=== PATIENT | female | born 2005 | race Caucasian/White ===

== ENCOUNTER 2025-04-25 10:43 | Emergency (ER) | payer OTHER, SELFPAY ==
[2025-04-25 10:52] VITALS: BP 122/85; PULSE 76; RESP 16; TEMP 36.7; O2SAT 99; BMI 34.9
--- NOTE | 2025-04-25 10:58 | ED.ABDPAIN ---
HPI - Abdominal Pain General Time Seen by Provider: 10:59 Date Seen: 04/25/25 Chief Complaint: Abdominal Pain Stated Complaint: abdominal pain Time Seen by Provider: 04/25/25 10:55 Source: patient and RN notes reviewed Mode of arrival: ambulatory Limitations: no limitations History of Present Illness HPI narrative: This 19-year-old female is coming into the ER with abdominal pain starting today. She awoke with lower generalized abdominal pain this morning. She has been using an yrmh-cax-indpjmd control called Opill. She is occasionally missed doses due to work but generally does not. She has not had a period since starting this 10 months ago. She is sexually active with her partner here. She had normal bowel movement yesterday. She has not eaten anything today but no nausea vomiting, just diminished appetite she thinks due to the pain. No urinary symptoms. She did just urinate prior to coming in, does not think should be able to provide us a urine specimen. She has noted no fevers or chills. MD elicited complaint: abdominal pain Related Data Previous Rx's ?Medication ?Instructions ?Recorded prednisone 20 mg tablet See Rx Instructions PO .ud #11 tabs 12/16/24 cephalexin 500 mg tablet 500 mg PO TID #15 tabs 04/25/25 Allergies Allergy/AdvReac Type Severity Reaction Status Date / Time No Known Drug Allergies Allergy Verified 04/25/25 10:52 Review of Systems Status of ROS Reports: 6 or more systems reviewed and unremarkable except as noted in History and below PFSH PFS Social History Do you use any of these nicotine containing products: Vaping Products How often do you have a drink containing alcohol: never AUDIT-C Alcohol total score: 0 Non-prescribed substance use: denies use service: No Exam Const: Vital Signs, click to edit/add: Vital Signs - 24 hr 04/25/25 10:52 04/25/25 11:37 04/25/25 11:45 Temperature 98.1 F Pulse Rate 59 L 56 L Pulse Rate [Pulse Oximeter] 76 Respiratory Rate 16 16 Blood Pressure Blood Pressure [Ri ght Upper Arm] 122/85 Pulse Oximetry 99 98 98 Oxygen Delivery Me thod Room Air 04/25/25 12:00 04/25/25 12:38 04/25/25 12:39 Temperature Pulse Rate 52 L 55 L Pulse Rate [Pulse Oximeter] Respiratory Rate Blood Pressure 106/70 Blood Pressure [Ri ght Upper Arm] Pulse Oximetry 97 100 100 Oxygen Delivery Me thod This 19yo female is seen in exam room 7, she is alert, interactive, no apparent distress. Sclera clear, face atraumatic. There is some facial here on the chin and underneath the chin. Neck supple, no adenopathy. Lungs are clear, good air entry, wheeze or crackles, no tachypnea, no accessory muscle use. CV regular rate and rhythm, no murmur, normal S1-S2, no S3-S4. Abdomen is soft, nondistended, bowel sounds are present. She has generalized lower abdominal tenderness without rebound or guarding, cannot appreciate organomegaly at this time. Pelvic exam deferred at this point. Documenting provider has reviewed patient's vital signs: yes Course Course ED Course: This is a 19-year-old female that has been taking emdd-cyj-gnhpdee oral contraceptives, possibly missing an occasional dose. She states she does need something for pain. We are going to place an IV, monitor on pulse oximetry, start IV fluids, morphine and Zofran for her pain control. She is not having any nausea right now but will give her the Zofran empirically to prevent the potential nausea with the narcotic administration. We will obtain labs, need to confirm status. Without fever, less likely to worry about infectious etiology. She does have some features of hirsutism which could go was something along the lines of polycystic ovarian syndrome. Did look patient up on [facility] and cannot see any records. Depending what some of her basic labs are showing, will likely order imaging with considerations of CT and pelvic ultrasonography. Reevaluation(s) Time of Reevaluation #1: 12:15 Reevaluation #1: Reviewed labs with patient, her white blood count is elevated, test negative, kidney and liver functions look fine. We reviewed that I ordered CT of her abdomen pelvis. The morphine has made her feel somewhat groggy but has helped her pain. Time of Reevaluation #2: 13:04 Reevaluation #2: Reviewed with patient her urinalysis seems to be consistent with UTI. We will certainly culture this. I have preliminarily looked at her CT, bladder looks thickened but I do not appreciate any evidence of any pyelonephritis on either side. Will await Radiology over-read. Given the severity of her pain in the acuity with which this presented, will give her 2 g IV Rocephin for initial treatment. Time of Reevaluation #3: 13:35 Reevaluation #3: Have reviewed CT findings with patient, likely ruptured ovarian cyst and UA is certainly consistent with UTI. She states that she is diagnosed with PCOS. Did review incidental finding of pulmonary nodule on CT, usually from prior infection in someone her age; she does vape. Would request that she follow up with primary provider regarding the CT, discuss if they feel she needs follow up imaging. Her pain from a ruptured ovarian cyst should improve from here onward. Will continue treatment for UTI with outpatient antibiotics, UC pending. Vital Signs Vital signs: Initial Vital Signs Temperature 98.1 F 04/25/25 10:52 Temperature Source Temporal Artery Scan 04/25/25 10:52 Pulse Rate 76 04/25/25 10:52 Respiratory Rate 16 04/25/25 10:52 Blood Pressure 122/85 04/25/25 10:52 Blood Pressure Mean 97 04/25/25 10:52 Pulse Oximetry 99 04/25/25 10:52 Oxygen Delivery Method Room Air 04/25/25 10:52 Vital Signs Temperature 98.1 F 04/25/25 10:52 Pulse Rate 76 04/25/25 10:52 Respiratory Rate 16 04/25/25 10:52 Blood Pressure 122/85 04/25/25 10:52 Pulse Oximetry 99 04/25/25 10:52 Oxygen Delivery Method Room Air 04/25/25 10:52 Temperature 98.1 F 04/25/25 10:52 Pulse Rate 55 L 04/25/25 12:38 Respiratory Rate 16 04/25/25 11:37 Blood Pressure 106/70 04/25/25 12:39 Pulse Oximetry 100 04/25/25 12:39 Oxygen Delivery Method Room Air 04/25/25 10:52 Medications Administered Medications: Discontinued Medications Generic Name Dose Route Start Last Admin Trade Name Freq PRN Reason Stop Dose Admin Sodium Chloride 1,000 mls @ 500 mls/hr 04/25/25 11:04 04/25/25 13:13 0.9 % Sodium Chloride 1000 Ml IV 04/25/25 13:03 Infused .Q2H ANEESH Infusion Ceftriaxone Sodium 2 gm/ 100 mls @ 200 mls/hr 04/25/25 13:02 04/25/25 13:11 Sodium Chloride IVPB 04/25/25 13:03 200 mls/hr ONCE ONE Administration Morphine Sulfate 4 mg 04/25/25 11:03 04/25/25 11:32 Morphine 4 Mg/Ml Inj IVP 04/25/25 11:04 4 mg ONCE ONE Administration Ondansetron HCl 4 mg 04/25/25 11:03 04/25/25 11:32 Ondansetron 2 Mg/Ml Inj IVP 04/25/25 11:04 4 mg ONCE ONE Administration MDM - Abdominal Pain Lab Data Attestation: I reviewed the patient's lab results. Labs: Lab Results 04/25/25 04/25/25 Range/Units 11:25 12:10 WBC 13.34 H (4.50-11.00) K/uL RBC 4.30 (4.00-5.20) m/uL Hgb 13.1 (12.0-16.0) gm/dL Hct 37.7 (33.0-51.0) % MCV 88 (80-100) fL MCH 31 (26-34) pg MCHC 35 (32-36) gm/dL RDW Coeff of Allan 11.9 (11.5-15.5) % Plt Count 297 (140-440) K/uL Neut % (Auto) 66.6 (42.0-72.0) % Lymph % (Auto) 22.7 (20-44) % Garden % (Auto) 5.7 (0.0-11.0) % Eos % (Auto) 4.6 (0.0-7.0) % Baso % (Auto) 0.2 (0.0-3.0) % Neut # (Auto) 8.90 H (1.7-7.0) K/uL Lymph # (Auto) 3.00 H (0.90-2.90) K/uL Garden # (Auto) 0.80 (0.00-0.90) K/UL Eos # (Auto) 0.60 H (0.00-0.50) K/uL Baso # (Auto) 0.00 (0.00-0.30) K/uL Abs Immat Gran (auto) 0.00 (0.00-0.30) K/uL Imm/Tot Granulo (auto) 0.2 % Sodium 139 (135-149) mmol/L Potassium 3.9 (3.6-5.1) mmol/L Chloride 104 (96-114) mmol/L Carbon Dioxide 26 (20-32) mmol/L Anion Gap 9 (7-15) mEq/L BUN 7 (5-24) mg/dL Creatinine 0.8 (0.6-1.2) mg/dL Estimated Creat Clear 105.89 Estimated GFR 109 ml/min Glucose 85 (60-115) mg/dL Lactate 0.8 (0.5-1.9) mmol/L Calcium 9.2 (8.7-10.8) mg/dL Total Bilirubin 0.6 (0.1-1.5) mg/dL AST 24 (12-35) U/L ALT 19 (4-35) U/L Alkaline Phosphatase 76 (40-150) U/L C-Reactive Protein < 0.5 L (0.5-1.0) mg/dL Total Protein 7.1 (6.0-8.3) g/dL Albumin 4.3 (3.3-5.0) g/dL HCG, Qual Negative (Negative) Urine Color Yellow (Yellow) Urine Appearance Slightly Cloudy A (Clear) Urine pH 5.5 (5.0-8.5) Ur Specific [place] 1.020 (1.000-1.030) Urine Protein Negative (Negative) Urine Glucose (UA) Negative (Negative) Urine Ketones Negative (Negative) Urine Blood Negative (Negative) Urine Nitrite Positive A (Negative) Urine Bilirubin Negative (Negative) Urine Urobilinogen 0.2 (0.2-1.0) Ur Leukocyte Esterase Trace A (Negative) Urine RBC 0-2 (0-2) Urine WBC 10-25 A (0-5) Ur Squamous Epith Cells Few (None-Few) Urine Bacteria Many A (None) Imaging Data CT scan - abdomen: Attestation: I have reviewed the pertinent imaging results. Radiologist's impression: Patient: AVRIL CHRISTIANSON Facility:?[facility] Patient ID:?[id number] Site Patient ID:?[id number]. Site :?[id number] Study:?CT-Abdomen/Pelvis w/ 106cc [id number]/1/2025 12:33:35 PM Ordering Physician:Maximus Arteaga Final Report: Indication: Severe lower abdominal pain. Technique: CT images of the abdomen and pelvis following intravenous contrast. Comparison: None. Findings: Solid 4 mm nodule lower lobe left lung (series 2, image 9). No pleural effusion. Heart size is normal. The liver, gallbladder, spleen, and pancreas are unremarkable. The adrenal gland and kidneys are unremarkable. The stomach is underdistended. No abnormally dilated loops of bowel. Appendix is unremarkable. Small free fluid in the pelvis. No free air. No pathologically enlarged lymph nodes. Abdominal aorta is normal in caliber. The urinary bladder is underdistended. Uterus is anteverted. Thin serpiginous enhancement in the right adnexa is discontiguous posteriorly and likely relates to a recently ruptured right ovarian cyst. Minimal lumbar spondylosis. No aggressive osseous lesions. Impression: 1. Small free fluid in the pelvis likely relates to a recently ruptured right ovarian cyst. 2. Small left lower lobe pulmonary nodule. Follow-up chest CT could be considered in 12 months if patient has risk factors for malignancy. Please note that all CT scans at this facility use dose modulation, iterative reconstruction, and/or weight-based dosing when appropriate to reduce radiation dose to as low as reasonably achievable. Dictated by Too Avilez MD @ 04/25/2025 1:23:36 PM (Electronic Signature) Discharge Plan Discharge Clinical Impression: Rupture of cyst of right ovary, PCOS (polycystic ovarian syndrome) UTI (urinary tract infection) Qualifiers: Urinary tract infection type: acute cystitis Hematuria presence: without hematuria Qualified Code(s): N30.00 - Acute cystitis without hematuria Patient Disposition: Home, Self-Care Condition: Stable Instructions: Ovarian Cyst (ED), Urinary Tract Infection in Women (ED) Additional Instructions: Start oral antibiotics tomorrow and take as prescribed. Push fluids. Can use Tylenol and ibuprofen per bottle directions as needed for further discomfort. Contraceptives can be diminished by antibiotics, so do recommend barrier protection for the next cycle of pills. You should schedule a follow-up with your primary care provider, review CT findings, review contraception in the setting of ovarian cyst on contraception. Different contraceptives may be recommended if you are developing ovarian cysts through your current pills. If you have further concerns or issues, do recommend re-evaluation. Bring the CT to your primary at follow-up to review the other incidental findings. Activity Level: No Restrictions Prescriptions: New cephalexin 500 mg tablet 500 mg PO TID Qty: 15 0RF No Action prednisone 20 mg tablet See Rx Instructions PO .ud Qty: 11 0RF Rx Instructions: 20 mg now, then 40 mg QAM for 3D, then 20 mg QAM for 4D. Take with food orally UD; Follow Up/Referrals: Provider,Not a Local [Primary Care Provider, Family Practice] Stand Alone Forms: Work/School Release, [employer] (Proprietary)ealth Info Instructions
[2025-04-25 11:32] LABS: Lactate* 0.8 mmol/L (0.5-1.9)
[2025-04-25] MEDS: MORPHINE 4 MG/ML INJ IVP (11:32)
[2025-04-25] MEDS: ONDANSETRON 2 MG/ML inj 4 MG IVP (11:32)
[2025-04-25 11:37] VITALS: PULSE 59; RESP 16; O2SAT 98
[2025-04-25 11:39] LABS: Hematocrit 37.7 % (33.0-51.0); Hemoglobin* 13.1 gm/dL (12.0-16.0); Immature Granulocytes Abs Auto 0.00 K/uL (0.00-0.30); Immature Granulocytes Pct Auto 0.2 %; Lymphocytes Absolute Auto 3.00 K/uL (0.90-2.90); Mean Corpuscular HGB Conc 35 gm/dL (32-36); Mean Corpuscular Hemoglobin 31 pg (26-34); Mean Corpuscular Volume 88 fL (80-100); RDW Coefficient of Variation % 11.9 % (11.5-15.5); Red Blood Count 4.30 m/uL (4.00-5.20); Slide Review Reflex No; White Blood Count* 13.34 K/uL (4.50-11.00)
[2025-04-25 11:45] VITALS: PULSE 56; O2SAT 98
[2025-04-25 12:00] VITALS: PULSE 52; O2SAT 97
[2025-04-25 12:06] LABS: Albumin* 4.3 g/dL (3.3-5.0); Chloride* 104 mmol/L (96-114); Potassium* 3.9 mmol/L (3.6-5.1); Sodium* 139 mmol/L (135-149)
[2025-04-25 12:09] LABS: Alanine Aminotransferase* 19 U/L (4-35); Alkaline Phosphatase* 76 U/L (40-150); Anion Gap 9 mEq/L (7-15); Aspartate Amino Transferase* 24 U/L (12-35); Bilirubin Total* 0.6 mg/dL (0.1-1.5); Blood Urea Nitrogen* 7 mg/dL (5-24); Calcium* 9.2 mg/dL (8.7-10.8); Carbon Dioxide* 26 mmol/L (20-32); Creatinine* 0.8 mg/dL (0.6-1.2); Est. Creatinine Clearance* 105.89; Estimated Glomerular Filt Rate 109 ml/min; Glucose* 85 mg/dL (60-115); Total Protein* 7.1 g/dL (6.0-8.3)
[2025-04-25 12:10] LABS: HCG Qualitative Serum* Negative (Negative)
--- NOTE | 2025-04-25 12:14 | CRLHL7_ITS ---
For Patients: As a result of the Century Cures Act, medical imaging exams and procedure reports are released immediately into your electronic medical record. You may view this report before your referring provider. If you have questions, please contact your health care provider. Indication: Severe lower abdominal pain. Technique: CT images of the abdomen and pelvis following intravenous contrast. Comparison: None. Findings: Solid 4 mm nodule lower lobe left lung (series 2, image 9). No pleural effusion. Heart size is normal. The liver, gallbladder, spleen, and pancreas are unremarkable. The adrenal gland and kidneys are unremarkable. The stomach is underdistended. No abnormally dilated loops of bowel. Appendix is unremarkable. Small free fluid in the pelvis. No free air. No pathologically enlarged lymph nodes. Abdominal aorta is normal in caliber. The urinary bladder is underdistended. Uterus is anteverted. Thin serpiginous enhancement in the right adnexa is discontiguous posteriorly and likely relates to a recently ruptured right ovarian cyst. Minimal lumbar spondylosis. No aggressive osseous lesions. Impression: 1. Small free fluid in the pelvis likely relates to a recently ruptured right ovarian cyst. 2. Small left lower lobe pulmonary nodule. Follow-up chest CT could be considered in 12 months if patient has risk factors for malignancy. Please note that all CT scans at this facility use dose modulation, iterative reconstruction, and/or weight-based dosing when appropriate to reduce radiation dose to as low as reasonably achievable. Dictated by Too Avilez MD @ 04/25/2025 1:23:36 PM (Electronically Signed)
[2025-04-25 12:24] LABS: Appearance Urine Slightly Cloudy (Clear)
[2025-04-25 12:38] VITALS: PULSE 55; O2SAT 100
[2025-04-25 12:39] VITALS: BP 106/70; O2SAT 100
[2025-04-25] MEDS: cefTRIAXone 2 GM in 0.9 % SODIUM CHLORIDE Mini-bag 100 ML IVPB (13:11)
== END 2025-04-25 13:51 | disposition home or self-care (01) ==
PROVIDERS: Emergency Provider Family Medicine
DX: N83.201 Unspecified ovarian cyst, right side (principal); K66.1 Hemoperitoneum; N39.0 Urinary tract infection, site not specified
CPT/HCPCS: 36415; 74177; 80053; 81001; 83605; 84703; 85025; 86140; 87086; 94761; 96374; 96375; 99284; 99285; J0696; J2270; J2405; J7030; Q9967

== ENCOUNTER 2025-05-19 10:38 | Outpatient (CLI) | payer OTHER, SELFPAY | END 2025-05-19 10:39 | disposition home or self-care (01) | LOC: NFLDREF 10:39 | PROVIDERS: Visit Provider Physician Assistant | DX: Z11.3 Encounter for screening for infections with a predominantly sexual mode of transmission (principal) | CPT/HCPCS: 87491; 87591 ==

== ENCOUNTER 2025-05-24 09:50 | Outpatient (CLI) | payer OTHER, SELFPAY | END 2025-05-24 09:51 | disposition home or self-care (01) | LOC: NFLDREF 05-29 07:46 | PROVIDERS: Visit Provider Physician Assistant | DX: E28.2 Polycystic ovarian syndrome (principal) | CPT/HCPCS: 80061; 83525 ==

== ENCOUNTER 2025-06-16 05:15 | Emergency (ER) | payer OTHER, MEDICAID, SELFPAY ==
--- OUTSIDE RECORDS SUMMARY | 2025-06-16 05:17 | XMS_ITS | Data Portability ---
Author Organization [place] - [facility], [employer] [facility] Address [address] [place] [address] Assessment Encounter Date Assessment Date Assessment LastModified by Organization Details LastModified Time 12/16/2024 12/16/2024 ASSESSMENT: Patient is a good candidate for conservative care and the prognosis is for a favorable outcome that achieves the patients' goals. We discussed etiology, activity modifications, home care, and other treatment options. Initially, it is recommended that the patient receive in-office treatment 1 times per week for 8 weeks at which time a re-evaluation will be performed to determine an appropriate change in plan. Initially, treatment will focus on joint manipulation to restore range of motion and reduce pain. We will slowly progress to therapeutic exercises and activities to improve function, strength, and stability may also be used as warranted. If the patient is not responding as expected, more invasive procedures will be discussed along with a referral. All considerations above were discussed with the patient and questions answered to satisfaction. If the patient should have any additional questions, or should the condition evolve or worsen, the patient should not hesitate to contact our office. Not available 12/22/2024 16:30:48 05/16/2025 05/16/2025 ASSESSMENT: Patient is a good candidate for conservative care and the prognosis is for a favorable outcome that achieves the patients' goals. We discussed etiology, activity modifications, home care, and other treatment options. Initially, it is recommended that the patient receive in-office treatment 1 times per week for 8 weeks at which time a re-evaluation will be performed to determine an appropriate change in plan. Initially, treatment will focus on joint manipulation to restore range of motion and reduce pain. We will slowly progress to therapeutic exercises and activities to improve function, strength, and stability may also be used as warranted. If the patient is not responding as expected, more invasive procedures will be discussed along with a referral. All considerations above were discussed with the patient and questions answered to satisfaction. If the patient should have any additional questions, or should the condition evolve or worsen, the patient should not hesitate to contact our office. Not available 05/17/2025 07:53:55 Plan of Treatment Reminders Order Date Submit Date Provider Last Modified By Organization Details Last Modified Time Details Appointments None record ed. Lab None record ed. Referral None record ed. Procedures None record ed. Surgeries None record ed. Imaging None record ed. Medication Orders None record ed. Patient TargetsNo targets recorded. Patient InstructionsNo instructions recorded. Reason for Referral None Reported. Problems Name Problem SNOMED Code Status Onset Date Resolution Date Notes Provider Name and Address Organization Details Recorded Time Lumbar segmental dysfunction 821553641 Active 2024 [facility] Ryan JohnsonRuby, [place] [address], [place], [address], [facility] 07:53:55 Neck pain 47889548 Active 2024 [facility] [place], [place] [address], [place], [address], [facility] 07:53:55 Thoracic segmental dysfunction 143712855 Active 2024 [facility] [place], [place] [address], [place], [address], [facility] 07:53:55 Lesion of lumbar spine 321954459 Active 2024 [facility] Ryan JohnsonRuby, [place] [address], [place], [address], [facility] 07:53:55 Cervical segmental dysfunction 605924737 Active 2024 [facility] [place], [place] [address], [place], [address], [facility] 07:53:56 Segmental and somatic dysfunction 070969011 Active 2024 Alfonso Scott [place] [address], [place], [address], [facility] 16:34:21 Problem Notes None recorded. Procedures Surgical History Date Name Laterality Status Provider Name and Address Organization Details Recorded Time 75416: Spinal manipulation , 3 to 4 regions completed Alfonso Scott [place] [address], [place], [address], [facility] 05/17/2025 07:54:47 11127: New patient E/M completed Alfonso Scott DC [address] [place] [address], [place], [address], [facility] 12/22/2024 16:33:25 Imaging Results None recorded. Procedure Notes None recorded. Medical Equipment None Reported. Vitals None Recorded Social History None recorded. Functional Status None recorded. Mental Status None recorded. Family History Nothing Reported. Medical History No medical history recorded. Gynecological HistoryNo gynecological history recorded. Obstetrics History GPAL:G 0 P 0 0 0 0 Past Encounters Encounter ID Performer Location Encounter Start Date Encounter Closed Date Diagnosis/Indication Diagnosis SNOMED-CT Code Diagnosis ICD10 Code Diagnosis IMO Codes Diagnosis Note [id number] Alfonso Scott DC [facility] [address] [place] [address] 12/22/2024 15:33:06 01/25/2025 16:38:55 Segmental and somatic dysfunction 762495114 M99.07 [id number] Alfonso Scott DC [facility] [address] [place] [address] 05/16/2025 16:59:55 05/17/2025 10:26:58 Lesion of lumbar spine 667481661 M99.01 Neck pain 55147689 M54.2 Thoracic s egmental dysfunction 749795873 M99.02 Lumbar seg mental dysfunction 235839074 M99.03 Cervical s egmental dysfunction 523935272 M99.01 Health Concerns Section Related Observation LastModified by Organization Detai ls LastModified Time None Recorded Concern Status LastModified by Organization Details LastModified Time None Recorded Advance Directives Directive None Recorded Payers Insurance Date Sequence Insurance Name Policy Number Policy Rico Covered Member ID Rico Member ID Guarantor Name 05/16/2025 1 *SELF PAY* Javed Solomon 05/16/2025 1 [employer] [facility] [employer] Kevin Solomon [id number] Kevin Solomon Notes Date Note Type Note Provider Name and Address Organization Details Recorded Time 12/16/2024 text/html HPI - Cervical SpineReported by PatientHPIFor location, patient reportsleft. For quality, patient reportsaching. For severity, patient reportsmoderate. For duration, patient reports2 weeks. For timing, patient reportsgradual. For alleviating factors, patient reportsice. For aggravating factors, patient reportssitting. For associated symptoms, patient reportsno numbness/tingling. Dislocated right shoulder that happened yesterday when she was bowling. Alfonso Scott DC [address], [place], [address], [facility] 12/22/2024 16:34:36 05/16/2025 text/html HPI - Cervical SpineReported by PatientHPIFor location, patient reportsleft. For quality, patient reportsaching. For severity, patient reportsmoderate. For duration, patient reports2 weeks. For timing, patient reportsgradual. For alleviating factors, patient reportsice. For aggravating factors, patient reportssitting. For associated symptoms, patient reportsno numbness/tingling. Alfonso Scott DC [address], [place], [address], [facility] 05/17/2025 07:54:57 OBGyn Episode No OBEpisode recorded.
--- OUTSIDE RECORDS SUMMARY | 2025-06-16 05:18 | XMS_ITS | Continuity of Care Document ---
Author Organization [place] [facility] Address [address] [place] [address] Assessment Encounter Date Assessment Date Assessment LastModified by Organization Details LastModified Time 05/16/2025 05/16/2025 ASSESSMENT: Patient is a good [...] should not hesitate to contact our office. [email or web address] Not available 05/17/2025 07:53:55 Plan of Treatment [...] Organization Details Recorded Time Lumbar segmental dysfunction [id number] Active 2024 Alfonso Scott DC [address], [place], [address], [place] [facility] 07:53:55 Neck pain 65220359 Active 2024 Alfonso Scott MS [address], [place], [address], [place] [facility] 07:53:55 Thoracic segmental dysfunction 571145592 Active 2024 Alfonso Scott MS [address], [place], [address], [place] [facility] 07:53:55 Lesion of lumbar spine 774053784 Active 2024 Alfonso Scott MS [address], [place], [address], [place] [facility] 07:53:55 Cervical segmental dysfunction 692617124 Active 2024 Alfonso Scott MS [address], [facility] [place], [address], [place] [facility] 07:53:56 Segmental and somatic dysfunction 721374063 Active 2024 Alfonso Scott MS [address], [facility], [address], [place] [facility] 16:34:21 Problem Notes None recorded. Procedures Surgical History Date Name Laterality Status Provider Name and Address Organization Details Recorded Time 38488: Spinal manipulation , 3 to 4 regions completed [facility] Ryan TylerMCCARLEY, DC [address], [place], [address], [facility] [place] [facility] 05/17/2025 07:54:47 [id number]: New patient E/M completed [facility] Ryan TylerMCCARLEY, DC [address], [place], [address], [facility] [place] [facility] 12/22/2024 16:33:25 Imaging Results None recorded. Procedure [...] ICD10 Code Diagnosis IMO Codes Diagnosis Note [id number] Alfonso Ryan Scott DC [facility] [address] [place] [address] 05/16/2025 16:59:55 05/17/2025 10:26:58 Lesion of lumbar spine 759295790 M99.01 Neck pain 98128692 M54.2 Thoracic s egmental dysfunction 808023645 M99.02 Lumbar seg mental dysfunction 026367806 M99.03 Cervical s egmental dysfunction 378638802 M99.01 Health Concerns Section Related Observation LastModified by Organization Detai ls LastModified Time None Recorded Concern Status LastModified by Organization Details LastModified Time None Recorded Payers Encounter Date Sequence Insurance Name Policy Number Policy [place] Covered Member ID [place] Member ID Guarantor Name 05/16/2025 1 [employer] [facility] [employer] Kevin Mckeonhn [id number] Kevin Solomon Notes Date Note Type Note Provider Name and Address Organization Details Recorded Time 05/16/2025 text/html HPI - Cervical SpineReported by PatientHPIFor location, patient reportsleft. For quality, patient reportsaching. For severity, patient reportsmoderate. For duration, patient reports2 weeks. For timing, patient reportsgradual. For alleviating factors, patient reportsice. For aggravating factors, patient reportssitting. For associated symptoms, patient reportsno numbness/tingling. Alfonso Scott DC [address], [place], [address], [facility] 05/17/2025 07:54:57 OBGyn Episode No OBEpisode recorded.
[2025-06-16 05:28] VITALS: BP 134/87; PULSE 69; RESP 18; TEMP 37; O2SAT 98; BMI 34.4
--- NOTE | 2025-06-16 05:56 | CRLHL7_ITS ---
For Patients: As a result of the Cures Act, medical imaging exams and procedure reports are released immediately into your electronic medical record. You may view this report before your referring provider. If you have questions, please contact your health care provider. INDICATION: Anterolateral ankle pain. No other history is given. COMPARISON: None available. TECHNIQUE: Three views of the left ankle. FINDINGS: Mineralization: Normal. Alignment: Normal. Bones and Joints: No fracture is identified. Soft Tissues: Unremarkable. IMPRESSION: No findings to explain the clinical history. Dictated by Angel Singh MD @ 06/16/2025 6:17:28 AM (Electronically Signed)
--- NOTE | 2025-06-16 05:57 | ED.GENADULT ---
HPI - General Adult General Chief complaint: Extremity Pain/Injury, Lower Stated complaint: left ankle pain Time Seen by Provider: 06/16/25 05:43 Source: patient Mode of arrival: ambulatory Limitations: no limitations History of Present Illness HPI narrative: 19-year-old female presents to the emergency department in the wee hours after 30 minutes of pain in the left ankle. Pain located in the anterior lateral ankle, focal, just anterior to the lateral malleolus. No trauma or injury. Hobbled into the ED, reports that she could not bear weight. No history DVT or PE. Told the nurse that she also had calf pain but denies that to me. Did not try any medications to help with symptoms. No prior similar symptoms, no prior surgery to this area. No other areas of injury. No recent fevers, no skin infection, no bruising or open sores. No prior similar workup. Reports benign past medical history, no long-term health problems. No long-term medications. Food allergies noted. ROS notable for the focal ankle pain, otherwise denies times 12 systems. Related Data Home Medications ?Medication ?Instructions ?Recorded ?Confirmed No Known Home Medications 05/19/25 05/19/25 Allergies Allergy/AdvReac Type Severity Reaction Status Date / Time oats Allergy Intermediate Swelling Verified 06/16/25 05:37 of Lip/Tongue/Throat almond Allergy Unknown Unknown Verified 06/16/25 05:37 sesame seed Allergy Unknown Unknown [facility] 06/16/25 05:37 [facility] Surgical History History of tonsillectomy and adenoidectomy ?Z90.89 - Acquired absence of other organs (ICD-10) Family History Maternal Grandmother Heart disease High blood pressure Father Diabetes Social History Narrative: Employed in customer service Engaged E cigarette use daily No alcohol use What is your current living situation?: I presently have a place to live Problems where you live: no known problems In the past 12 months, utilities in danger of being shut off: no In the past 12 mos, have been you worried that your food would run out before you had money to buy more?: never true In the past 12 mos, the food you bought just didn't last and you didn't have money to buy more?: never true Do you use any of these nicotine containing products: Vaping Products How often do you have a drink containing alcohol: never AUDIT-C Alcohol total score: 0 Non-prescribed substance use: denies use How often does anyone, including family, friends and others, physically hurt you: never How often does anyone, including family, friends and others, insult or talk down to you: never How often does anyone, including family, friends and others, threaten you with harm: never How often does anyone, including family, friends and others, scream or curse at you: never service: No Exam Const: Vital Signs, click to edit/add: Vital Signs - 24 hr 06/16/25 05:28 Temperature 98.6 F Pulse Rate [Right Pulse Oximeter] 69 Respiratory Rate 18 Blood Pressure [Ri ght Upper Arm] 134/87 Pulse Oximetry 98 Oxygen Delivery Me thod Room Air Documenting provider has reviewed patient's vital signs: yes Common normals: alert Other: Fair insight. Suboptimal hygiene. Appears well nourished well hydrated, nontoxic. HENMT: Common normals: normocephalic Head and scalp: normocephalic Face and sinus: normal facial exam Eye: General eye: normal appearance of both eyes Resp: Common normals: normal respiratory effort Effort & inspection: able to speak in complete sentences Cardio: Other: 2+ dorsalis pedis pulses bilaterally. Regular rate rhythm. Normal capillary refill all toes. Extremity: Other: Both foot and ankles appear grossly normal. Normal range of motion both knees, there what her bend both to take off her shoes. Normal visual inspection. Both ankles appear grossly normal. Both feet appear normal as well. No swelling, deformity, bruising or signs of trauma. Right ankle, toes and foot all move normally. No tenderness. The left foot has normal range of motion, no point bony tenderness. The left ankle with normal range of motion passively. Active range of motion with some tenderness to eversion and dorsiflexion. Mild point tenderness anterior to the lateral malleolus, focal. No swelling or deformity at this area. Both calves are soft with no palpable cord or swelling. Neuro: Sensorium/orientation: alert Speech: speech normal Motor exam: strength 5/5 throughout Psych: Activity/motor behavior: appropriate eye contact Insight: fair Judgement: fair Skin: Common normals: no rashes or lesions noted General skin exam: no rashes or lesions noted Course Course ED Course: 19-year-old female with brief episode of calf pain and now anterior lateral ankle pain with no trauma or injury. I suspect that the calf pain was a charley horse that woke her from sleep and has fully resolved, reported only to the nurse but denied to me. There is no evidence of persistent pain, movement deficit, swelling that would make me suspect DVT. As far as the anterior ankle, this seems consistent with tendinitis, less likely impingement syndrome. Will obtain x-ray to ensure that there is no occult fracture, effusion, bone spur or other abnormalities. Will give Toradol 10 mg p.o. x1 and await x-ray results. Reevaluation(s) Time of Reevaluation #1: 06:40 Reevaluation #1: Update: X-ray reviewed with patient, normal, as expected. Patient reports improvement with the Toradol. Suspect that this is a tendinitis. Recommended an ankle support brace, discussed that often this type of tendinitis happens from on supportive footwear, walking around barefoot or from foot arch issues. The ankle sleep will help support the arch of the foot. Compressive socks with foot and ankle support may be helpful also. Counseled on proper doses of Tylenol and ibuprofen for pain relief. Cleared for all activity. If not improving in 2 weeks, recommend physical therapy and/or primary care referral. Indications 1 warrant emergency room evaluation reviewed, written instructions provided. Vital Signs Vital signs: Initial Vital Signs Temperature 98.6 F 06/16/25 05:28 Temperature Source Temporal Artery Scan 06/16/25 05:28 Pulse Rate 69 06/16/25 05:28 Pulse Rhythm Regular 06/16/25 05:28 Pulse Strength 3+ Normal 06/16/25 05:28 Respiratory Rate 18 06/16/25 05:28 Blood Pressure 134/87 06/16/25 05:28 Blood Pressure Mean 102 06/16/25 05:28 Blood Pressure Position Supine 06/16/25 05:28 Pulse Oximetry 98 06/16/25 05:28 Oxygen Delivery Method Room Air 06/16/25 05:28 Vital Signs Temperature 98.6 F 06/16/25 05:28 Pulse Rate 69 06/16/25 05:28 Respiratory Rate 18 06/16/25 05:28 Blood Pressure 134/87 06/16/25 05:28 Pulse Oximetry 98 06/16/25 05:28 Oxygen Delivery Method Room Air 06/16/25 05:28 Temperature 98.6 F 06/16/25 05:28 Pulse Rate 69 06/16/25 05:28 Respiratory Rate 18 06/16/25 05:28 Blood Pressure 134/87 06/16/25 05:28 Pulse Oximetry 98 06/16/25 05:28 Oxygen Delivery Method Room Air 06/16/25 05:28 Medications Administered Medications: Discontinued Medications Generic Name Dose Route Start Last Admin Trade Name Gavin PRN Reason Stop Dose Admin Ketorolac Tromethamine 10 mg 06/16/25 05:56 06/16/25 06:00 Ketorolac 10 Mg Tablet PO 06/16/25 05:57 10 mg ONCE ONE Administration Medical Decision Making Imaging Data X-ray left ankle: Attestation: I have reviewed the pertinent imaging results. My impression: Normal x-ray. No fracture, no effusion, no soft tissue swelling Radiologist's impression: IMPRESSION: No findings to explain the clinical history. Dictated by Angel Singh MD @ 06/16/2025 6:17:28 AM (Electronically Signed) Discharge Plan Discharge Clinical Impression: Left ankle tendinitis Patient Disposition: Home w/ Parent or Adult Condition: Improved Instructions: Tendinitis (ED) Additional Instructions: As we discussed, this area of pain in your ankle is typically associated with tendonitis, and inflammation of the tendon that helps you flex and haydee your foot. I tend to see this in people that are flat footed, wear poor fitting or unsupportive shoes. First, I recommend that you poultry picker an ankle sleeve support brace from the pharmacy. This will help support the arch of the foot and also the lower ankle and help stabilize the tendons that are inflamed. For pain, I recommend Tylenol 1000 mg every 6 hours and or ibuprofen 600 mg every 6 hours. You are cleared to return to all typical duty. It is not uncommon that this will hurt more at night or 1st thing in the morning. Take the medications as directed, massaged and think should loosen up within about an hour or so. If you have persistent symptoms regularly for 2 weeks, please make a follow-up appointment in clinic or move refer to physical therapy for strengthening exercises to help reduce this in the future. Please save use of the emergency room for severe emergent type of symptoms like strokes, severe injuries, etc.. Activity Level: No Restrictions Discharge Diet: Regular Prescriptions: No Action No Known Home Medications Follow Up/Referrals: Provider,Not a Local [Primary Care Provider, Family Practice] Stand Alone Forms: BringShare Info Instructions
[2025-06-16] MEDS: KETOROLAC 10 MG TABLET PO (06:00)
== END 2025-06-16 07:00 | disposition home or self-care (01) ==
PROVIDERS: Emergency Provider Family Medicine
DX: M65.872 Other synovitis and tenosynovitis, left ankle and foot (principal)
CPT/HCPCS: 73610; 99283; A9270